=== PATIENT | female | born 1995 | race Caucasian/White ===

== ENCOUNTER 2020-05-30 07:06 | Emergency (ER) | payer SELFPAY ==
[~2020-05-30] VITALS: Ht 167 cm; Wt 86.0 kg
--- NOTE | 2020-05-30 07:29 | ED EENT ---
History of Present Illness General Chief Complaint: Oral/Throat Problems Stated Complaint: SORE THROAT Nursing Triage Note: ARRIVED VIA AMB TO ROOM 06 WITH COMPLAINTS OF WAKING UP WITH A SORETHROAT. STATES SHE WENT BACK TO SLEEP THEN WOKE UP AGAIN AND DECIDED TO TAKE HER SISTERS EPI PEN THEN COME TO THE ER. Source: patient Exam Limitations: no limitations History of Present Illness Date Seen by Provider: May 30, 2020 Time Seen by Provider: 07:20 Initial Comments 25-year-old female presents with onset of a sore throat which began last night. States she was up a couple of times because it was hurting. This morning she said her throat felt like it was swelling shut. She denied any difficulty breathing, tongue swelling or wheezing when she was breathing. Denies history of asthma or anaphylaxis. Her sister had an EpiPen which was prescribed to her and the patient states her mother and sister insisted that she give herself the EpiPen which she did 5 minutes prior to arrival. Allergies and Home Medications Allergies Coded Allergies: No Known Drug Allergies (Unverified , 05/30/20) Patient Home Medication List Home Medication List Reviewed: Yes Review of Systems Review of Systems Constitutional: see HPI; No chills, No dizziness, No fever, No malaise, No weakness Eyes: No Symptoms Reported Ears: No Symptoms Reported Nose: no symptoms reported Mouth: no symptoms reported Throat: see HPI, swelling; denies neck stiffness, denies hoarse, denies apho sue, denies muffled; painful swallowing; denies difficulty with fluids Respiratory: no symptoms reported; No cough, No orthopnea, No stridor, No wheezing Cardiovascular: No chest pain, No edema, No palpitations, No syncope Gastrointestinal: No abdominal pain, No vomiting Skin: No change in color, No pruritus, No rash Neurological: Denies Headache, Denies Numbness, Denies Paresthesia Past Xtrapqs-Gmitgn-Boezcu Hx Past Med/Social Hx: Reviewed Nursing Past Med/Soc Hx Patient Social History Recent Foreign Travel: No Contact w/Someone Who Travel: No Recent Infectious Disease Expo: No Physical Exam Vital Signs Vital Signs - First Documented 05/30/20 07:18 Temp 36.9 Pulse 126 Resp 16 B/P (MAP) 156/88 (110) Pulse Ox 99 O2 Delivery Room Air Height, Weight, BMI Height: '" Weight: lbs. oz. kg; 30.00 BMI Method: General Appearance: WD/WN, no apparent distress Eyes: bilateral eye normal inspection, bilateral eye PERRL, bilateral eye EOMI Ears: bilateral ear auricle normal, bilateral ear canal normal, bilateral ear TM normal Nose: normal inspection; No sinus tenderness Mouth/Throat: normal mouth inspection; No excessive drooling, No foreign body, No mandibular swelling, No maxillary swelling, No pharynx swelling, No pharynx tenderness, No tongue swollen, No tonsillar exudate, No tonsillar swelling, No trismus, No uvula swelling, No voice changes; other (mild pharyngeal erythema without significant edema. Normal airway!) Neck: non-tender, supple, normal inspection; No limited range of motion, No lymphadenopathy (R), No lymphadenopathy (L), No tender lateral, No tender midline Cardiovascular: no JVD, no murmur, tachycardia Respiratory: chest non-tender, lungs clear, normal breath sounds, no respiratory distress, no accessory muscle use Neurologic/Psychiatric: alert, normal mood/affect Skin: normal color, warm/dry; No rash Progress/Results/Core Measures Results/Orders Lab Results Laboratory Tests Test 05/30/20 07:30 Range/Units Group A Streptococcus Screen NEGATIVE NEGATIVE My Orders Orders - MARYBEL CORONA DO Rapid Strep A Screen (05/30/20 07:22) Methylprednisolone Sod Succ (Solu-Medrol (05/30/20 07:30) Diphenhydramine Injection (Benadryl Inje (05/30/20 07:30) Medications Given in ED Current Medications Medications Dose Ordered Sig/Jose Carlos Route Start Time Stop Time Status Last Admin Dose Admin Diphenhydramine HCl 25 mg ONCE ONCE IM 05/30/20 07:30 05/30/20 07:31 DC 05/30/20 07:32 25 MG Methylprednisolone Sodium Succinate 80 mg ONCE ONCE IV 05/30/20 07:30 05/30/20 07:31 DC 05/30/20 07:32 80 MG Vital Signs/I&O 05/30/20 07:18 Temp 36.9 Pulse 126 Resp 16 B/P (MAP) 156/88 (110) Pulse Ox 99 O2 Delivery Room Air Blood Pressure Mean: 110 Progress Progress Note : Progress Note Uneventful ER stay, period of observation waiting for her heart rate to slow after the epi injection. Reexamination with normal appearance of her oropharynx, neck and airway. Lungs clear to auscultation without wheezing. Reinforced with patient not to use other people's prescription medications in this case never to use epinephrine without a doctor directed emergent indication. Patient agrees and understands. Advised to take [id number] antihistamines and symptomatic care for sore throat and feeling of swelling. Departure Impression Primary Impression: Pharyngitis Qualified Codes: J02.9 - Acute pharyngitis, unspecified Disposition: HOME, SELF-CARE Condition: Improved Departure-Patient Inst. Decision time for Depature: 08:07 Referrals: NO,LOCAL PHYSICIAN (PCP/Family) Primary Care Physician Patient Instructions: Sore Throat, Adult (DC) Add. Discharge Instructions: See your Primary Care Provider (PCP) in 3 days if not improving or worse. Take an Over the counter (OTC) antihistamine, like Benadryl, Claritin, Mivlia as needed for the next 1 week All discharge instructions reviewed with patient and/or family. Voiced understanding. MARYBEL CORONA DO May 30, 2020 07:29
[2020-05-30] MEDS ORDERED: diphenhydrAMINE 50 MG/ML INJ (BENADRYL) IM ONE (07:30)
[2020-05-30] MEDS ORDERED: methylPREDNISolone 40 MG/ML (Solu-MEDROL) VIAL IV ONE (07:30)
[2020-05-30 08:14] VITALS: BP 136/78
== END 2020-05-30 08:14 | disposition home or self-care (01) ==
LOC: ER FS 07:09
DX: J02.9 Acute pharyngitis, unspecified (principal)
CPT/HCPCS: 87430; 99284

== ENCOUNTER → 2021-05-04 | Outpatient (CLI) | payer SELFPAY ==
--- NOTE | 2021-05-04 11:21 | Diagnostic Imaging Report ---
Indication: Shortness of breath PA and lateral chest Heart size and pulmonary vascularity are normal. Lungs are clear. There are no effusions or pneumothoraces. IMPRESSION: Negative chest Dictated by: Dictated on workstation # [id number]
== END ==
LOC: RAD FS 10:58
PROVIDERS: ATTEND Nurse Practitioner Family
DX: R07.89 Other chest pain (principal); R06.02 Shortness of breath
CPT/HCPCS: 71046

== ENCOUNTER 2021-06-10 18:58 | Emergency (ER) | payer SELFPAY ==
[2021-06-10] MEDS ORDERED: methylPREDNISolone 80 MG/ML (DEPO MEDROL) VIAL IM STA (19:14)
[2021-06-10] MEDS ORDERED: diphenhydrAMINE 50 MG/ML INJ (BENADRYL) IM STA (19:14)
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
[2021-06-10 19:45] VITALS: BP 123/77
== END 2021-06-10 19:43 | disposition home or self-care (01) ==
LOC: EDUNIT# 18:58 → ER FS 19:01
DX: L25.9 Unspecified contact dermatitis, unspecified cause (principal)
CPT/HCPCS: 99284